=== PATIENT | female | born 1990 | race Caucasian/White ===

== ENCOUNTER 2018-06-27 20:58 | Inpatient (IN) | payer BC ==
[2018-06-27] MEDS ORDERED: Famotidine TAB* 20 MG PO PRN (22:40)
--- NOTE | 2018-06-27 22:56 | HP ---
General Information - General Information Maternal Age: 27 Grav: 1 Para: 0 SAB: 0 IEA: 0 Estimated Due Date: 07/04/18 Determined By: LMP Maternal Blood Type and Rh: A Positive - Results this Serology/RPR Result: Non-Reactive Rubella Result: Immune HBsAg Result: Negative HIV Result: Negative GBS Culture Result: Negative Past Medical History Delivery History: See Records Delivery History Comment: No previous pregnancies Pertinent Past Medical History: See Records Past Medical History Comment: Depression/anxiety migraine Pertinent Past Surgical History: None Pertinent Family History: Non-Contributory Family History Comment: HTN Diabetes [place] Moline's dz - Antepartal Records Antepartal Records: Reviewed, Complicated by: - polyhydramnios Review of Systems Constitutional: Uncomfortable CV Complaint: No Respiratory: Shortness of Breath: No Gastrointestinal: No Nausea/Vomiting, Diarrhea Genitourinary: Leaking Fluid, No Dysuria, No Bleeding Musculoskeletal: Contractions - Mild cramps Neurological: No Headache, No Visual Changes Movement: Normal Exam Allergies/Adverse Reactions: Allergies shellfish derived Allergy (Severe, Verified 06/27/18 21:12) Anaphylatic Shock cefaclor [From Ceclor] Allergy (Intermediate, Verified 06/27/18 21:12) Hives Iodine and Iodide Containing Produc Allergy (Intermediate, Verified 06/27/18 21: 12) Anaphylatic Shock BP 130/86 T 98.8 HR 93 O2 98 - Measurements Height: 5 ft 7 in Weight: 209 lb Weight in lbs: [phone] Body Mass Index (BMI): 32.7 Pre- Weight: 145 lb Weight Gained This : 64 lbs and 0 ozs - Exam Breast: Breast Exam Deferred CVA: No CVA Tenderness Extremities: No Edema Heart: Normal Rhythm/Heart Sounds HEENT: No Significant Findings Lungs: Clear Bilaterally Rectal: Rectal Exam Deferred Reflexes: DTR 2+, - - no clonus - Abdominal Exam Abdomen Exam: Non-Tender - Ultrasound/Biophysical Profile Ultrasound Status: Not Done Targeted Exam Findings Estimated Weight: 8.5-9lb Membrane Status: SROM Amniotic Fluid Evaluation: Gross Rupture Bleeding/Discharge: None - Vaginal exam deferred at this time due to membrane rupture. EFM Findings - External Monitor Findings Baseline Heart Rate: 150 External Monitor Findings: Accelerations Present, No Pattern of Variable or Late Decelerations, Variability Moderate Contractions: Irregular, Mild, < 45 Seconds Contraction Frequency: Cramping Assessment/Plan - Assessment 27 yo with IUP @ 39+0 weeks gestation, complicated by polyhydramnios, with spontaneous rupture of membranes. No evidence metabolic acidemia. - Plan Plan: Admit - Anticipate Vaginal Delivery Plan Comment: Admit to L&D. Discussed option of therapeutic rest but patient prefers to avoid medication at this time. Encouraged rest/sleep and awaiting labor. Aware that recommendation will be to augment labor if not starting before approx 12 hours post rupture; PARQ discussion pitocin for this. Desires labor epidural when uncomfortable. Anticipate SVB - Date/Time of Admission Date of Admission: 06/27/18 Time of Admission: 21:43
[2018-06-28] MEDS ORDERED: Promethazine INJ(RESTRICTED)* 25 MG/ML 1 ML VIAL IV PRN (04:35)
[2018-06-28] MEDS ORDERED: Nalbuphine* 10 MG/ML 1 ML VIAL IV PRN ×2 (04:35→22:38)
[2018-06-28 04:45] LABS: ABS Basophils 0.1 10^3/ul (0-0.2); ABS Eosinophils 0.1 10^3/ul (0-0.6); ABS Lymphocytes 2.4 10^3/ul (1.0-4.8); ABS Monocytes 1.4 10^3/ul (0-0.8); ABS Neutrophils 7.7 10^3/ul (1.5-7.7); ABS Nucleated RBC 0 10^3/ul; Eosinophil % 0.8 % (0-6); Hematocrit 36 % (35-47); Hemoglobin 12.2 g/dl (12.0-16.0); Lymphocyte % 20.7 % (25-47); Mean Corpuscular HGB Conc 34 g/dl (31-36); Mean Corpuscular Hemoglobin 30 pg (27-31); Mean Corpuscular Volume 90 fL (80-97); Mean Platelet Volume 10.9 um3 (7.4-10.4); Nucleated Red Blood Cells % 0.1; Platelet Count 144 10^3/ul (150-450); Red Blood Count 4.01 10^6/ul (4.00-5.40); Red Cell Distribution Width 13 % (10.5-15); White Blood Count 11.6 10^3/ul (3.5-10.8)
--- NOTE | 2018-06-28 04:46 | PN ---
Progress Note - Progress Note Date of Service: 06/28/18 Note: S: Patient more uncomfortable, wants to discuss pain medicine and have VE. O: VSS, afebrile VE 1-2cm/100/-1 FHT 125, cat 1 UCs Q 2-4 min A: Early labor No evidence metabolic acidemia P: PARQ discussion nubain/phenergan and patient accepts. Plan to try to sleep and consider epidural as desired
[2018-06-28] MEDS ORDERED: OBEPIDURAL* 250 ML EPIDURAL ONE (09:59)
[2018-06-28] MEDS ORDERED: Sodium Citrate/Citric Acid* 15 ML UDC PO PRN (10:57)
[2018-06-28] MEDS ORDERED: EPHEDrine (Pressors)* 50 MG/ML VIAL IV PUSH PRN ×2 (10:57)
[2018-06-28] MEDS ORDERED: Famotidine TAB* 20 MG PO PRN (10:57)
[2018-06-28] MEDS ORDERED: Phenylephrine IV* 40 MCG/ML 10 ML SYRINGE IV PUSH PRN ×2 (10:57)
[2018-06-28] MEDS ORDERED: Oxytocin in LR* 20 UNITS/1,000 ML BAG IVPB SCH ×3 (11:00→22:00)
[2018-06-28] MEDS ORDERED: Clindamycin 900 MG IVPREMIX(* 900 MG/50 ML SDV IV ONE (21:00)
[2018-06-28] MEDS ORDERED: Gentamicin ADULT (*) 120 MG in NS 0.9% 100 ML* 100 ML IVPB ONE (21:00)
[2018-06-28] MEDS ORDERED: Dibucaine 1% 28.35 GM TUBE PR PRN (21:10)
[2018-06-28] MEDS ORDERED: Acetaminophen TAB* 325 MG PO PRN (21:10)
[2018-06-28] MEDS ORDERED: Witch Hazel PAD* JAR TOPICAL PRN (21:10)
[2018-06-28] MEDS ORDERED: oxyCODONE/Acetamin 5/325 MG* TAB PO PRN ×2 (21:10)
[2018-06-28] MEDS ORDERED: Glycerin ADULT SUPP PR PRN (21:10)
[2018-06-28] MEDS ORDERED: Ibuprofen TAB* 600 MG PO PRN (21:10)
[2018-06-28] MEDS ORDERED: Lidocaine 2% PF* 10 ML AMP ONE (21:16)
[2018-06-28] MEDS ORDERED: Midazolam* 1 MG/ML 2 ML VIAL (2 MG) ONE (21:44)
[2018-06-28] MEDS ORDERED: fentaNYL* 50 MCG/ML 2 ML VIAL (100 MCG VIAL) ONE (22:15)
[2018-06-28] MEDS ORDERED: Ketorolac INJ* 30 MG/ML 1 ML VIAL ONE (22:16)
[2018-06-28] MEDS ORDERED: Morphine PF AMP (0.5MG/ML)* 5 MG/10 ML AMP ONE ×2 (22:34→22:35)
[2018-06-28] MEDS ORDERED: Ondansetron INJ* 2 MG/ML VIAL IV PRN ×2 (22:37→22:38)
[2018-06-28] MEDS ORDERED: HYDROmorphone INJ1* 1 MG/ML SYRINGE IV PRN (22:37)
[2018-06-28] MEDS ORDERED: Naloxone* 0.4 MG/ML 1 ML VIAL IV PRN ×2 (22:37→22:38)
[2018-06-28] MEDS ORDERED: fentaNYL* 50 MCG/ML 2 ML VIAL (100 MCG VIAL) IV PRN (22:37)
[2018-06-28] MEDS ORDERED: DiMENhydriNATE IV* 50 MG/ML VIAL IV PUSH PRN (22:38)
[2018-06-28] MEDS ORDERED: Scopolamine 1.5 mg* PATCH TRANSDERM PRN (22:38)
[2018-06-28] MEDS ORDERED: diPHENhydraMINE IV* 50 MG/ML 1 ml VIAL (BENADRYL) IV PRN (22:38)
[2018-06-28] MEDS: HYDROmorphone INJ* 0.5 MG/0.5 ML SYRINGE ONE ×3 (23:20→23:34)
[2018-06-29] MEDS: Ketorolac INJ* 30 MG/ML 1 ML VIAL IV PRN ×4 (04:17→22:04)
[2018-06-29 06:17] LABS: ABS Basophils 0.1 10^3/ul (0-0.2); ABS Eosinophils 0.1 10^3/ul (0-0.6); ABS Lymphocytes 1.7 10^3/ul (1.0-4.8); ABS Monocytes 1.5 10^3/ul (0-0.8); ABS Neutrophils 8.6 10^3/ul (1.5-7.7); ABS Nucleated RBC 0 10^3/ul; Eosinophil % 0.5 % (0-6); Hematocrit 32 % (35-47); Hemoglobin 11.1 g/dl (12.0-16.0); Lymphocyte % 14.1 % (25-47); Mean Corpuscular HGB Conc 35 g/dl (31-36); Mean Corpuscular Hemoglobin 31 pg (27-31); Mean Corpuscular Volume 90 fL (80-97); Mean Platelet Volume 10.8 um3 (7.4-10.4); Nucleated Red Blood Cells % 0.1; Platelet Count 124 10^3/ul (150-450); Red Blood Count 3.57 10^6/ul (4.00-5.40); Red Cell Distribution Width 13 % (10.5-15); White Blood Count 11.9 10^3/ul (3.5-10.8)
[2018-06-29] MEDS ORDERED: Ferrous Gluconate TAB* 324 MG TAB PO SCH (09:00)
[2018-06-29] MEDS: Simethicone TAB* 80 MG TAB.CHEW PO SCH ×4 (10:00→22:07)
[2018-06-29] MEDS: Docusate CAP* 100 MG PO SCH ×3 (10:00→22:07)
--- NOTE | 2018-06-29 10:27 | OP ---
DATE OF OPERATION: 06/28/18 - ROOM #104 DATE OF : [birth year]. SURGEON: Dr. Arabella Richards. WIND INSTRUMENT REPAIRER: Mary Amezquita MD. SECOND WIND INSTRUMENT REPAIRER: Jennie Stevens CNM. ANESTHESIOLOGIST: Dr. Prado. ANESTHESIA: Epidural. PRE-OP DIAGNOSIS: Intrauterine 39 and 1/7th weeks, polyhydramnios large for gestational age, arrest disorder, arrest of dilation. POST-OP DIAGNOSIS: Intrauterine 39 and 1/7th weeks, polyhydramnios large for gestational age, arrest disorder, arrest of dilation, delivered. OPERATIVE PROCEDURE: Primary low transverse section. FINDINGS: Revealed a vertex left occiput transverse male with Apgars 9 at 1 minute and 9 at 5 minutes, nuchal cord x1, no meconium, weight 9 pounds 15 ounces. Placenta manually extracted, 3-vessel cord intact. Uterine cavity without evidence of retained membranes or placental tissue. Normally palpated ovaries and tubes bilaterally. ESTIMATED BLOOD LOSS: 600 cc. URINE OUTPUT: 400 cc of clear yellow urine. FLUIDS: 1600 cc of crystalloid. COMPLICATIONS: None apparent. DISPOSITION: Stable to recovery room. DESCRIPTION OF PROCEDURE: The patient was placed in dorsal lithotomy position. The abdomen was prepped and draped in a sterile standard fashion. Anesthesia was tested to appropriate level. The patient was identified for correct procedure, position and patient. An incision was made 2 fingerbreadths above the pubic symphysis. This was carried down through the fascia. The fascia was scored in the midline and extended laterally and superiorly using Tejada scissors. Fascia was sharply from the rectus muscle both superiorly and inferiorly. The peritoneum was then entered bluntly. The bladder blade was inserted and bladder flap was created with sharp and blunt dissection and the Allis was used to tent up on the lower uterine segment. An incision was made with a scalpel, extended laterally and superiorly using bandage scissors. The infant was found to be nonengaged within the pelvis, head presentation of the left occiput transverse. Vacuum was placed x2 with final delivery of the head, anterior and posterior shoulder delivered. The cord was allowed to pulse for 60 seconds and then clamped and cut and the was handed off to the executive marketing assistant. Appropriate cord blood was obtained. Placenta was then manually extracted and noted to be 3-vessel cord and intact. Uterus was left in place and the uterine cavity was explored and noted to free of any membranes or placental tissues. The uterine incision itself was reapproximated in 2 layers, first layer running locked 0 Vicryl and the second layer running imbricated 0 Vicryl. The hysterotomy site was noted to be hemostatic at that point. Tubes and ovaries were palpated and noted to be palpate normally, but could not be visualized. Once the hemostasis was confirmed at the hysterotomy site, the peritoneum was clamped with Magalis. The peritoneum was reapproximated using 3-0 Vicryl in a running fashion. The subfascial area was visualized, hemostasis assured with Bovie coagulation. The fascia itself was reapproximated using 0 Vicryl x2 in a running fashion. Subcu lavage was performed and the subcu was noted to be hemostatic with Bovie coagulation. The Camper's fascia was noted to have more than a 2 cm depth, so the Camper's fascia was reapproximated using 3-0 Vicryl in an interrupted fashion. The skin was then reapproximated with 4-0 Monocryl in a subcuticular fashion, Mastisol and Steris were applied. All sponge, needle, instrument, and blade counts were correct throughout the case. The patient tolerated the procedure well and went to recovery room in a stable condition. [id number]/[facility] #: [id number] CHIDI
[2018-06-29] MEDS: oxyCODONE/Acetamin 5/325 MG* TAB PO PRN ×3 (12:47→20:40)
[2018-06-29] MEDS ORDERED: oxyCODONE/Acetamin 5/325 MG* TAB PO PRN (14:40)
[2018-06-30] MEDS ORDERED: Ammonia Inhalant* 1 EA AMP ONE (02:50)
[2018-06-30] MEDS: oxyCODONE/Acetamin 5/325 MG* TAB PO PRN ×3 (04:19→21:04)
[2018-06-30] MEDS: Ibuprofen TAB* 600 MG PO PRN ×4 (04:20→23:05)
[2018-06-30] MEDS: OBEPIDURAL* 250 ML EPIDURAL SCH ×2 (09:25→09:27)
[2018-06-30] MEDS: Simethicone TAB* 80 MG TAB.CHEW PO SCH ×4 (09:37→21:07)
[2018-06-30] MEDS: Docusate CAP* 100 MG PO SCH ×3 (09:37→21:07)
[2018-07-01] MEDS: oxyCODONE/Acetamin 5/325 MG* TAB PO PRN ×3 (01:11→09:28)
[2018-07-01] MEDS: Ibuprofen TAB* 600 MG PO PRN (05:30)
[2018-07-01 08:15] VITALS: BP 104/60
[2018-07-01] MEDS: Docusate CAP* 100 MG PO SCH (09:27)
[2018-07-01] MEDS: Simethicone TAB* 80 MG TAB.CHEW PO SCH (09:28)
[2018-07-01] MEDS ORDERED: Hydrocortisone 1% CREAM* 1.5 GM PAK TOPICAL SCH (11:00)
[2018-07-01] MEDS ORDERED: Scopolamine PATCH Remove* 1 NOTE MISC PATCH OFF PRN (22:40)
== END 2018-07-01 12:39 | disposition home or self-care (01) | DRG 540 ==
LOC: MCHOBOUT 20:58 → MCHOB 21:43
PROVIDERS: ADMIT Midwife; ATTEND Obstetrics & Gynecology
PROC: 10D00Z1 Extraction of Products of Conception, Low, Open Approach (ICD-10-PCS; principal; 2018-06-28 21:27)
DX: O62.0 Primary inadequate contractions (principal); O40.3XX0 Polyhydramnios, third trimester, not applicable or unspecified; O99.344 Other mental disorders complicating childbirth; F41.8 Other specified anxiety disorders; O69.81X0 Labor and delivery complicated by cord around neck, without compression, not applicable or unspecified; Z3A.39 39 weeks gestation of pregnancy; Z37.0 Single live birth
CPT/HCPCS: 36415; 85025; 86850; 86900; 86901; A9270-GY; J1170; J1580; J1885; J2001; J2250; J2300; J2550; J3010

== ENCOUNTER 2019-05-07 20:48 | Emergency (ER) | payer BC ==
[2019-05-07 21:08] VITALS: BP 125/85
--- NOTE | 2019-05-07 21:40 | UC ---
Abdominal Pain Female HPI - HPI Summary HPI Summary: ONSET THIS AFTERNOON OF DULL PAIN IN THE BACK WHICH IS NOW ACROSS HER WHOLE ABDOMEN. SHE HAS HAD WORSENING NAUSEA BUT NO VOMITING. NO CHANGE IN BOWEL HABITS. NO URINARY SYMPTOMS. NO FEVER. NO MENSES IN ABOUT 19 MONTHS DUE TO AND BREAST-FEEDING. - History of Current Complaint Chief Complaint: UCAbdominalPain Stated Complaint: ABD PAIN Time Seen by Provider: 05/07/19 20:56 Hx Obtained From: Patient Onset/Duration: Gradual Onset, Lasting Hours, Still Present Timing: Constant Severity Initially: Moderate Severity Currently: Moderate Pain Intensity: 7 Pain Scale Used: 0-10 Numeric Location: Diffuse Radiates: Yes Radiates to: Back Character: Sharp Aggravating Factor(s): Movement Alleviating Factor(s): Nothing Associated Signs and Symptoms: Positive: Back Pain, Nausea. Negative: Diaphoresis, Fever, Constipation, Blood in Stool, Urinary Symptoms, Decreased Appetite, Vomiting, Diarrhea Allergies/Adverse Reactions: Allergies Allergy/AdvReac Type Severity Reaction Status Date / Time shellfish derived Allergy Severe Anaphylatic Verified 05/07/19 21:08 Shock cefaclor [From Ceclor] Allergy Intermediate Hives Verified 05/07/19 21:08 Iodine and Iodide Containing Allergy Intermediate Anaphylatic Verified 05/07/19 21:08 Produc Shock Home Medications: Home Medications Ibuprofen TAB* [Motrin TAB* 600 MG] 200 mg PO Q6H PRN 05/07/19 [History Confirmed 05/07/19] Loratadine [Claritin 10 MG CAP] 10 mg PO DAILY 05/07/19 [History Confirmed 05/07] PMH/Surg Hx/FS Hx/Imm Hx Previously Healthy: Yes - Surgical History Surgical History: Yes Surgery Procedure, Year, and Place: c-sec x1 - Family History Known Family History: Positive: Non-Contributory - Social History Alcohol Use: None Alcohol Amount: pre = 1 to 2/ week Substance Use Type: None Smoking Status (MU): Former Smoker Type: Cigarettes Length of Time of Smoking/Using Tobacco: 3yrs Have You Smoked in the Last Year: No Review of Systems All Other Systems Reviewed And Are Negative: Yes Constitutional: Positive: Negative Respiratory: Positive: Negative Cardiovascular: Positive: Negative Gastrointestinal: Positive: Abdominal Pain, Nausea Genitourinary: Positive: Negative Physical Exam Triage Information Reviewed: Yes Appearance: Well-Nourished, Pain Distress - MODERATE Vital Signs: Initial Vital Signs Temp 98.0 F 05/07/19 21:02 Pulse 86 05/07/19 21:02 Resp 16 05/07/19 21:02 BP 125/85 05/07/19 21:02 Pulse Ox 99 05/07/19 21:02 Laboratory Tests 05/07/19 05/07/19 21:15 21:22 POC Urine Color Yellow POC Urine Clarity Clear POC Urine pH 7.5 POC Ur Specif Bono 1.015 POC Urine Protein Negative POC Ur Glucose (UA) Negative POC Urine Ketones Negative POC Urine Blood Negative POC Urine Nitrite Negative POC Urine Bilirubin Negative POC Urine Urobilinogen 0.2 POC U Leukocyte Esteras Negative POC Ur Test Negative Vital Signs Reviewed: Yes Eyes: Positive: Conjunctiva Clear ENT: Positive: Hearing grossly normal Neck: Positive: Supple Respiratory: Positive: No respiratory distress, No accessory muscle use Cardiovascular: Positive: Pulses Normal Abdomen Description: Positive: Soft, Other: - EXQUISITELY TTP RLQ. PAIN WITH LIGHT PERCUSSION TO THE AREA. POS PSOAS AND OBTURATOR SIGNS. Negative: CVA Tenderness (R), CVA Tenderness (L), Distended, Guarding Bowel Sounds: Positive: Present Musculoskeletal: Positive: No Edema Neurological: Positive: Alert Psychological: Positive: Age Appropriate Behavior Skin: Negative: Rashes Abd Pain Female Course/Dx - Course Course Of Treatment: CONCERN FOR ACUTE APPENDICITIS. TO [facility] BY PRIVATE CAR. PT OFFERED TRANSPORT TO THE ER BY AMBULANCE BUT DECLINES. ADVISED THAT BY NOT TRAVELING IN A MONITORED SETTING SHE COULD BE RISKING WORSENING OF HER CONDITION THAT COULD POSE A THREAT TO HER LIFE, HEALTH AND MEDICAL SAFETY. SHE VERBALIZES UNDERSTANDING AND CONTINUES TO DECLINE AMBULANCE TRANSFER. - Differential Dx/Diagnosis Provider Diagnosis: RLQ abdominal pain Discharge - Sign-Out/Discharge Documenting (check all that apply): Patient Departure All imaging exams completed and their final reports reviewed: No Studies - Discharge Plan Condition: Stable Disposition: TRANS HIGHER LVL OF CARE FAC Patient Education Materials: Abdominal Pain (ED) Referrals: Saud Polanco MD [Primary Care Provider] - If Needed Additional Instructions: I AM CONCERNED ABOUT ACUTE APPENDICITIS. DO NOT EAT OR DRINK ANYTHING UNTIL SEEN IN THE ER. GO DIRECTLY TO THE [facility] ER FROM HERE FOR FURTHER EVALUATION. YOU HAVE DECLINED TRANSFER TO THE ER BY AMBULANCE. BE ADVISED THAT BY NOT TRAVELING IN A MONITORED SETTING YOU COULD BE RISKING WORSENING OF YOUR CONDITION THAT COULD POSE A THREAT TO YOUR LIFE, HEALTH AND MEDICAL SAFETY. - Billing Disposition and Condition Condition: STABLE Disposition: Trans Higher Lvl of Care Fac
== END 2019-05-07 21:35 | disposition short-term general hospital (02) ==
LOC: UCEAST 20:48
DX: R10.31 Right lower quadrant pain (principal); Z87.891 Personal history of nicotine dependence
CPT/HCPCS: 81003; 84702; 99212; G0463

== ENCOUNTER 2019-05-07 21:58 | Emergency (ER) | payer BC ==
[2019-05-07 22:57] LABS: ABS Basophils 0.1 10^3/ul (0-0.2); ABS Eosinophils 0.1 10^3/ul (0-0.6); ABS Lymphocytes 1.9 10^3/ul (1.0-4.8); ABS Monocytes 1.2 10^3/ul (0-0.8); ABS Neutrophils 9.1 10^3/ul (1.5-7.7); Eosinophil % 0.8 %; Hematocrit 45 % (35-47); Hemoglobin 15.3 g/dL (12.0-16.0); Lymphocyte % 15.5 %; Mean Corpuscular HGB Conc 34 g/dL (31-36); Mean Corpuscular Hemoglobin 31 pg (27-31); Mean Corpuscular Volume 91 fL (80-97); Mean Platelet Volume 9.2 fL (7.4-10.4); Platelet Count 220 10^3/uL (150-450); Red Cell Distribution Width 13 % (10-15); White Blood Count 12.4 10^3/uL (3.5-10.8)
[2019-05-07 23:14] LABS: ALT 10 U/L (7-52); AST 16 U/L (13-39); Albumin 4.7 g/dL (3.2-5.2); Albumin/Globulin Ratio 1.5 (1-3); Alkaline Phosphatase 109 U/L (34-104); Anion Gap 7 mmol/L (2-11); BUN/Creatinine Ratio 21.5 (8-20); Blood Urea Nitrogen 17 mg/dL (6-24); C Reactive Protein 4.29 mg/L (<8.01); CO2 Carbon Dioxide 27 mmol/L (22-32); Calcium 9.7 mg/dL (8.6-10.3); Chloride 105 mmol/L (101-111); EGFR African American 104.9 (>60); EGFR Non-African American 86.7 (>60); Globulin 3.1 g/dL (2-4); Glucose 110 mg/dL (70-100); Potassium 3.6 mmol/L (3.5-5.0); Sodium 139 mmol/L (135-145); Total Protein 7.8 g/dL (6.4-8.9)
[2019-05-07 23:20] LABS: HCG Pregnancy < 0.60 mIU/mL
[2019-05-08 00:18] VITALS: BP 150/93
[2019-05-08] MEDS ORDERED: Bupivacaine 0.25% SDV PF* 10 ML VIAL INJ ONE (12:20)
[2019-05-08] MEDS ORDERED: Midazolam* 1 MG/ML 5 ML VIAL (5 MG) ONE (12:54)
[2019-05-08] MEDS ORDERED: fentaNYL* 50 MCG/ML 2 ML VIAL (100 MCG VIAL) ONE ×2 (12:54→14:58)
[2019-05-08] MEDS ORDERED: Ketorolac INJ* 30 MG/ML 1 ML VIAL ONE (12:56)
[2019-05-08] MEDS ORDERED: Lidocaine 2% PF * 5 ML VIAL ONE (12:56)
[2019-05-08] MEDS ORDERED: Dexamethasone IV* 4 MG/ML 1 ML (4 MG) ONE (12:56)
[2019-05-08] MEDS ORDERED: Propofol* 10 MG/ML 20 ML BTL ONE ×2 (12:56→14:38)
[2019-05-08] MEDS ORDERED: Ondansetron INJ* 2 MG/ML VIAL ONE (12:56)
[2019-05-08] MEDS ORDERED: Succinylcholine* 20 MG/ML 10 ML VIAL ONE (12:56)
[2019-05-08] MEDS ORDERED: DiMENhydriNATE IV* 50 MG/ML VIAL ONE (12:56)
[2019-05-08] MEDS ORDERED: Rocuronium* 10 MG/ML VIAL ONE (12:58)
[2019-05-08] MEDS ORDERED: Acetaminophen IV 1GM/100ML * 100 ML ONE (14:24)
[2019-05-08] MEDS ORDERED: Midazolam* 1 MG/ML 2 ML VIAL (2 MG) ONE (14:58)
[2019-05-08] MEDS ORDERED: oxyCODONE TAB* 5 MG TAB ONE ×2 (15:23→15:52)
== END 2019-05-08 01:27 | disposition home or self-care (01) ==
LOC: ED 21:58
DX: Z53.21 Procedure and treatment not carried out due to patient leaving prior to being seen by health care provider (principal)
CPT/HCPCS: 36415; 76705; 80053; 83605; 83690; 84702; 85025; 86140; 99282; A9270-GY; J0330; J1100; J1240; J1885; J2250; J2405; J2704; J3010; J3490

== ENCOUNTER 2019-05-08 08:33 | Day surgery (SDC) | payer BC ==
[2019-05-08] MEDS ORDERED: Ondansetron INJ* 2 MG/ML VIAL IV ONE (09:52)
[2019-05-08] MEDS ORDERED: Morphine 4 MG/ML VIAL (1 ml) 4 MG/ML VIAL IV ONE (09:52)
[2019-05-08] MEDS ORDERED: NS 0.9% 1000 ML** 1,000 ML IV ONE (09:57)
[2019-05-08 10:09] LABS: ABS Basophils 0.1 10^3/ul (0-0.2); ABS Eosinophils 0.1 10^3/ul (0-0.6); ABS Lymphocytes 1.6 10^3/ul (1.0-4.8); ABS Monocytes 0.9 10^3/ul (0-0.8); ABS Neutrophils 6.1 10^3/ul (1.5-7.7); Eosinophil % 0.7 %; Hematocrit 41 % (35-47); Hemoglobin 14.3 g/dL (12.0-16.0); Lymphocyte % 18.9 %; Mean Corpuscular HGB Conc 35 g/dL (31-36); Mean Corpuscular Hemoglobin 32 pg (27-31); Mean Corpuscular Volume 91 fL (80-97); Mean Platelet Volume 9.3 fL (7.4-10.4); Platelet Count 189 10^3/uL (150-450); Red Blood Count 4.54 10^6 /uL (3.70-4.87); Red Cell Distribution Width 13 % (10-15); White Blood Count 8.7 10^3/uL (3.5-10.8)
[2019-05-08 10:22] LABS: ALT 9 U/L (7-52); AST 13 U/L (13-39); Albumin 4.3 g/dL (3.2-5.2); Albumin/Globulin Ratio 1.4 (1-3); Alkaline Phosphatase 102 U/L (34-104); Anion Gap 5 mmol/L (2-11); BUN/Creatinine Ratio 20.3 (8-20); Blood Urea Nitrogen 14 mg/dL (6-24); CO2 Carbon Dioxide 29 mmol/L (22-32); Calcium 9.5 mg/dL (8.6-10.3); Chloride 106 mmol/L (101-111); EGFR African American 122.6 (>60); EGFR Non-African American 101.3 (>60); Glucose 99 mg/dL (70-100); Potassium 3.9 mmol/L (3.5-5.0); Sodium 140 mmol/L (135-145); Total Protein 7.3 g/dL (6.4-8.9)
--- NOTE | 2019-05-08 11:24 | ED ---
Abdominal Pain/Female - HPI Summary HPI Summary: Pt. is a 28 y.o female who presents to the ER for lower abdominal pain since yesterday. Pt. states she went to [facility] and then referred to ER yesterday. Pt. had labs and u/s of appendix in the waiting room but states she had to leave to breast feed. Denies past medical hx. Pain notes pain is primarily to RLQ but radiates to back. Associated sxs of decreased appetite and nausea. Sxs are moderate in severity. Movement makes sxs worse. Nothing makes - History of Current Complaint Chief Complaint: EDAbdPain Stated Complaint: ABD PAIN PER PT Time Seen by Provider: 05/08/19 09:39 Hx Obtained From: Patient Pain Intensity: 7 Allergies/Adverse Reactions: Allergies Allergy/AdvReac Type Severity Reaction Status Date / Time shellfish derived Allergy Severe Anaphylatic Verified 05/08/19 08:42 Shock cefaclor [From Ceclor] Allergy Intermediate Hives Verified 05/08/19 08:42 Iodine and Iodide Containing Allergy Intermediate Anaphylatic Verified 05/08/19 08:42 Produc Shock PMH/Surg Hx/FS Hx/Imm Hx Previously Healthy: Yes Psychiatric History: Reports: Hx Anxiety, Hx Depression - Surgical History Surgery Procedure, Year, and Place: c-sec x1 Infectious Disease History: No Infectious Disease History: Denies: Traveled Outside the [place] in Last 30 Days - Family History Known Family History: Positive: Non-Contributory - Social History Occupation: Unemployed Lives: With Family Alcohol Use: Occasionally Alcohol Amount: pre = 1 to 2/ week Substance Use Type: Reports: None Smoking Status (MU): Former Smoker Type: Cigarettes Length of Time of Smoking/Using Tobacco: 3yrs Have You Smoked in the Last Year: No Review of Systems Constitutional: Negative Negative: Fever, Chills ENT: Negative Cardiovascular: Negative Respiratory: Negative Positive: Abdominal Pain, Nausea. Negative: Vomiting, Diarrhea Genitourinary: Negative All Other Systems Reviewed And Are Negative: Yes Physical Exam Triage Information Reviewed: Yes Vital Signs On Initial Exam: Initial Vitals Temp Pulse Resp BP Pulse Ox 97.7 F 82 16 108/73 99 05/08/19 08:39 05/08/19 08:39 05/08/19 08:39 05/08/19 08:39 05/08/19 08:39 Vital Signs Reviewed: Yes Appearance: Positive: Well-Appearing - Pt. lying in bed, appears uncomfortable but nontoxic. Mother present. Skin: Positive: Warm, Dry Head/Face: Positive: Normal Head/Face Inspection Eyes: Positive: Normal, EOMI, MELI Neck: Positive: Supple Respiratory/Lung Sounds: Positive: Clear to Auscultation, Breath Sounds Present Cardiovascular: Positive: Normal, RRR Abdomen Description: Positive: Other: - Abd. is soft with significant pain to RLQ and lower abd. with guarding. No CVA Tenderness. Musculoskeletal: Positive: Normal, Strength/ROM Intact Neurological: Positive: Normal, CN Intact II-III Psychiatric: Positive: Affect/Mood Appropriate Diagnostics - Vital Signs Vital Signs Temp Pulse Resp BP Pulse Ox 05/08/19 11:01 84 97 05/08/19 10:19 81 115/77 98 05/08/19 10:10 16 05/08/19 10:01 79 98 05/08/19 09:50 77 106/71 99 05/08/19 09:20 82 99/71 98 05/08/19 09:01 88 98 05/08/19 08:50 81 118/80 98 05/08/19 08:49 86 98 05/08/19 08:39 97.7 F 82 16 108/73 99 - Laboratory Lab Results: Lab Results 05/08/19 05/08/19 Range/Units 09:57 09:57 WBC 8.7 (3.5-10.8) 10^3/uL RBC 4.54 (3.70-4.87) 10^6 /uL Hgb 14.3 (12.0-16.0) g/dL Hct 41 (35-47) % MCV 91 (80-97) fL MCH 32 H (27-31) pg MCHC 35 (31-36) g/dL RDW 13 (10-15) % Plt Count 189 (150-450) 10^3/uL MPV 9.3 (7.4-10.4) fL Neut % (Auto) 69.9 % Lymph % (Auto) 18.9 % [place] % (Auto) 9.8 % Eos % (Auto) 0.7 % Baso % (Auto) 0.7 % Absolute Neuts (auto) 6.1 (1.5-7.7) 10^3/ul Absolute Lymphs (auto) 1.6 (1.0-4.8) 10^3/ul Absolute Monos (auto) 0.9 H (0-0.8) 10^3/ul Absolute Eos (auto) 0.1 (0-0.6) 10^3/ul Absolute Basos (auto) 0.1 (0-0.2) 10^3/ul Absolute Nucleated RBC 0.0 10^3/ul Nucleated RBC % 0.0 Sodium 140 (135-145) mmol/L Potassium 3.9 (3.5-5.0) mmol/L Chloride 106 (101-111) mmol/L Carbon Dioxide 29 (22-32) mmol/L Anion Gap 5 (2-11) mmol/L BUN 14 (6-24) mg/dL Creatinine 0.69 (0.51-0.95) mg/dL Est GFR ( Amer) 122.6 (>60) Est GFR (Non-Af Amer) 101.3 (>60) BUN/Creatinine Ratio 20.3 H (8-20) Glucose 99 (70-100) mg/dL Calcium 9.5 (8.6-10.3) mg/dL Total Bilirubin 0.70 (0.2-1.0) mg/dL AST 13 (13-39) U/L ALT 9 (7-52) U/L Alkaline Phosphatase 102 (34-104) U/L C-Reactive Protein 60.00 H (<8.01) mg/L Total Protein 7.3 (6.4-8.9) g/dL Albumin 4.3 (3.2-5.2) g/dL Globulin 3.0 (2-4) g/dL Albumin/Globulin Ratio 1.4 (1-3) Lipase 10 L (11.0-82.0) U/L Result Diagrams: 05/08/19 09:57 05/08/19 09:57 Lab Statement: Any lab studies that have been ordered have been reviewed, and results considered in the medical decision making process. Abdominal Pain Fem Course/Dx - Course Course Of Treatment: Pt. presenting with worsening RLQ pain. Afebrile with stable VS. Will obtain CT scan to evaluate for appendicitis. Labs unremarkable other than elevated CRP. CT abd.pelvis per radiology: IMPRESSION: There is dilated tubular structure in the right lower quadrant consistent with. mildly dilated appendix measuring up to 0.9 cm. Findings are suggestive of acute. appendicitis. 1125: Case discussed with Dr. Robertson who will see pt. in ED. Dr. Robertson plans to take pt. to OR. Zosyn given. - Diagnoses Differential Diagnosis: Positive: Appendicitis, Bowel Obstruction, Constipation , Ovarian Cyst, Renal Colic, Urinary Tract Infection Provider Diagnoses: Appendicitis Discharge - Sign-Out/Discharge Documenting (check all that apply): Patient Departure Patient Received Moderate/Deep Sedation with Procedure: No - Discharge Plan Condition: Stable Disposition: [facility] Referrals: Saud Polanco MD [Primary Care Provider] - - Billing Disposition and Condition Condition: STABLE Disposition: Admitted to [facility]
[2019-05-08] MEDS ORDERED: Piperacillin/Tazobac ADVAN(*) 3.375 GM in NS 0.9% 100 ML* 100 ML IVPB ONE (11:29)
[2019-05-08 12:39] LABS: HCG Pregnancy < 0.60 mIU/mL
[2019-05-08] MEDS ORDERED: Naloxone* 0.4 MG/ML 1 ML VIAL IV PRN (14:53)
[2019-05-08] MEDS ORDERED: Midazolam* 1 MG/ML 2 ML VIAL (2 MG) IV SLOW PU ONE (14:56)
[2019-05-08] MEDS: fentaNYL* 50 MCG/ML 2 ML VIAL (100 MCG VIAL) IV PRN ×3 (15:02→15:18)
[2019-05-08] MEDS: oxyCODONE TAB* 5 MG TAB PO PRN ×2 (15:27→15:54)
[2019-05-08 15:55] VITALS: BP 96/55
--- NOTE | 2019-05-08 19:38 | OP ---
DATE OF OPERATION: 05/08/19 - [facility] DATE OF : [birth year] SERVICE: General Surgery. SURGEON: Liz Robertson MD. FILTER CLOTH MAKER: None. ANESTHESIOLOGIST: Dr. Maritza Owens. ANESTHESIA: General endotracheal anesthesia. PRE-OP DIAGNOSIS: Acute appendicitis. POST-OP DIAGNOSIS: Acute appendicitis. OPERATIVE PROCEDURE: Laparoscopic appendectomy. ESTIMATED BLOOD LOSS: Minimal, less than 10 cc. SPECIMEN: Appendix. FINDINGS: Enlarged, dilated, nonperforated appendix. INDICATIONS FOR SURGERY: Ms. Verduzco is a very pleasant 28-year-old female, who presented to the emergency room with 1 day of right lower quadrant abdominal pain. She was found on CT scan to have findings consistent with acute appendicitis; therefore, she gave informed consent for a laparoscopic appendectomy. She understood the risks, benefits, and alternatives of the procedure and she wished to proceed. DESCRIPTION OF PROCEDURE: The patient was brought back to the operating room and placed on the operating table in the supine position. Sequential compression devices were placed on her bilateral lower extremities for DVT prophylaxis. Antibiotics with Zosyn had been administered prior to coming to the operating room. General endotracheal anesthesia was induced and the patient 's abdomen was prepped and draped in normal sterile fashion. Prior to beginning the procedure, a time-out was performed verifying the patient's name, MR number , and the procedure to be performed. Marcaine 0.25% was used to infiltrate the infraumbilical fold. Then, an incision was made through the subcutaneous tissue at the infraumbilical fold and then 2 S retractors were used to retract the soft tissue laterally. The abdominal wall was lifted between 2 Rosas clamps and sharply divided and the abdomen was entered under direct visualization using the open Afia technique. A 0 Vicryl suture was used to secure this defect in a [id number] fashion for later closure. Next, insufflation was obtained to 15mmHg and a Afia trocar was placed in this incision. Upon inspection of the abdominal cavity with a laparoscope, there was no apparent injury that had been made. Next, under direct visualization, the remaining 2 trocars were placed, 1 in the left lower quadrant and 1 in the lower midline well up the pubis and above the bladder. These incisions were made after infiltrating with 0.25% Marcaine. Next, the appendix was visualized in the right lower quadrant. It was noted to be somewhat dilated and hyperemic , but it was nonperforated. There was a small amount of turbid fluid in the pelvis above the uterus and also in the right lower quadrant. The meso- appendix was divided using the LigaSure and then the base of the appendix was divided using a 60-mm kyle Endo SMILEY stapler. The appendix was placed into the Endo Catch bag and removed from the abdomen as a specimen. Next, inspection of the staple line showed that it was mostly hemostatic. There was a small amount bit of bleeding near the mesoappendix and this was clipped. Next, the abdomen was inspected and a few loose omar were suctioned and an examination again of the staple line showed that it was hemostatic; therefore, the site where the Afia trocar had had a 0 Vicryl suture placed was closed under direct visualization after removing the trocar and there was nothing that was caught during this closure. The remaining two trocars were removed under direct visualization and desufflation was obtained. The skin incisions were closed using interrupted 4-0 Monocryl sutures. Sterile dressing was then placed. The patient's anesthesia was reversed and she was taken to the PACU in stable condition. At the end of the case, all counts were correct and I was present during the entirety of the case. [id number]/[facility] #: [id number] CHIDI
--- NOTE | 2019-05-10 03:34 | CONS ---
CONSULTATION REPORT: DATE OF CONSULT: 05/08/19 [facility] SERVICE: General Surgery. ATTENDING SURGEON: Dr. Liz Robertson. REASON FOR CONSULT: Acute appendicitis. HISTORY OF PRESENT ILLNESS: Ms. Verduzco is a very pleasant 28-year-old healthy woman who presented to the emergency room with 1 day of epigastric radiating to right lower quadrant abdominal pain. She said that her pain began yesterday suddenly around 2 p.m. She went to the emergency, but she left prior to being fully evaluated given that she had to go home and take care of her . She presented back to the emergency room today because she had continued right lower quadrant pain that was worsening. She says currently that she still has quite a bit of pain in the right lower quadrant. She has nausea, decreased appetite, but she has not been vomiting. She has no other complaints at this time. PAST MEDICAL HISTORY: None. PAST SURGICAL HISTORY: . MEDICATIONS: 1. vitamin. 2. Claritin. ALLERGIES: SHELLFISH and IODINE. FAMILY HISTORY: No known family history. SOCIAL HISTORY: The patient is a nonsmoker, but she used to smoke in the past. REVIEW OF SYSTEMS: Negative, except for abdominal pain, nausea, and anorexia. PHYSICAL EXAM: Vital Signs: Temperature is 97.7, pulse 52, respiratory rate is 16, blood pressure is 108/73, O2 sat is 99% O2 on room air. General: She is a well-appearing young woman lying on the stretcher, somewhat anxious, but in no great distress. HEENT is normocephalic, atraumatic. Cardiovascular is regular rate and rhythm. Respiratory is clear to auscultation bilaterally. Abdomen is soft, nondistended. Tender in the right lower quadrant. Extremities : No edema. DIAGNOSTIC STUDIES/LAB DATA: White blood cell count is 8.7, hemoglobin is 14.3 , hematocrit is 41, platelets are 189. Sodium is 140, potassium is 3.9, chloride is 106, CO2 is 29, BUN is 14, creatinine is 0.69, glucose is 99. T. bili is 0.7, AST is 13, ALT is 9. C-reactive protein is 60. Imaging: CT abdomen and pelvis on 05/08/19 - reviewed. There is a dilated tubular structure in the right lower quadrant consistent with a mildly dilated appendix measuring up to 0.9 cm. Findings are suggestive of acute appendicitis. ASSESSMENT AND PLAN: Ms. Verduzco is a very pleasant 28-year-old female with a history of 1 day of right lower quadrant abdominal pain. She has no leukocytosis and no fever; however, she does have a noncontrast CT scan that is consistent with acute appendicitis given that she has a dilated tubular structure with some mild stranding around it. We discussed the potential treatment options for acute appendicitis that include operative management with a laparoscopic appendectomy versus medical management with antibiotics. She wished to undergo surgery. I explained to her that the risks include, but are not limited to bleeding, infection, injury to nearby structures such as the small intestine, colon, stomach, uterus, and ovaries and the risk for postoperative abscess as well as the risk for other operative procedures should any potential injuries to nearby structures occur. She understood these risks, benefits, and alternatives and she wished to proceed with surgery. She has been given Zosyn. She has been n.p.o. since yesterday evening and we will take her to the operating room for laparoscopic appendectomy. [id number]/[facility] #: [id number] CHIDI
== END 2019-05-08 15:58 | disposition home or self-care (01) ==
LOC: ED 08:33 → SDS 15:29
PROVIDERS: ATTEND Surgery
DX: K35.80 Unspecified acute appendicitis (principal); R10.31 Right lower quadrant pain; R11.0 Nausea; F41.8 Other specified anxiety disorders; Z87.891 Personal history of nicotine dependence
CPT/HCPCS: 36415; 74176; 80053; 83690; 84702; 85025; 86140; 88304; 99283; J2270; J2405; J2543

== ENCOUNTER 2019-10-10 08:17 | Emergency (ER) | payer BC ==
[2019-10-10 08:25] VITALS: BP 118/78
--- NOTE | 2019-10-10 08:55 | UC ---
- HPI Summary HPI Summary: 28yo mom, a 16 mo, with clogged duct yesterday and a small blister on the left nipple. She used a neele to deroof this, and then pumped about 8 ounces of mild from the breast. Today, she feels unwell with myalgias and chills, increasing pain in the breast, and soreness in the left axilla. She has taken 800mg of ibuprofen within the hour. - History of Current Complaint Hx Obtained From: Patient Breast Chief Complaint: Pain, Left, Color Changes Onset/Duration: Started Hours Ago Timing: Constant Breast Pain Radiates To: Left, Axilla Breast Pain Aggravating Factors: Breast Feeding, Palpation, Pressure Breast Pain Alleviating Factors: Heat Breast Associated Signs/Symptoms: Redness, Recent/Remote Trauma - Allergy/Home Medications Allergies/Adverse Reactions: Allergies Allergy/AdvReac Type Severity Reaction Status Date / Time shellfish derived Allergy Severe Anaphylatic Verified 10/10/19 08:25 Shock cefaclor [From Ceclor] Allergy Intermediate Hives Verified 10/10/19 08:25 Iodine and Iodide Containing Allergy Intermediate Anaphylatic Verified 10/10/19 08:25 Produc Shock PMH/Surg Hx/FS Hx/Imm Hx Previously Healthy: Yes - Surgical History Surgical History: Yes Surgery Procedure, Year, and Place: c-sec x1,appy 05/09/19 - Family History Known Family History: Positive: Non-Contributory - Social History Lives: With Family Alcohol Use: Occasionally Alcohol Amount: pre = 1 to 2/ week Substance Use Type: None Smoking Status (MU): Former Smoker Type: Cigarettes Length of Time of Smoking/Using Tobacco: 3yrs Have You Smoked in the Last Year: No Review of Systems All Other Systems Reviewed And Are Negative: Yes Constitutional: Positive: Fatigue Skin: Positive: Other - left breast erythema Eyes: Positive: Negative ENT: Positive: Negative Respiratory: Positive: Negative Cardiovascular: Positive: Negative Gastrointestinal: Positive: Negative Genitourinary: Positive: Negative Motor: Positive: Negative Neurovascular: Positive: Negative Musculoskeletal: Positive: Negative Neurological: Positive: Negative Psychological: Positive: Negative Is Patient Immunocompromised?: No Physical Exam Triage Information Reviewed: Yes Appearance: Ill-Appearing - looks pale and fatigued, Pain Distress - moderate Vital Signs: Initial Vital Signs Temp 97.8 F 12/22/19 08:22 Pulse 100 10/10/19 08:22 Resp 20 10/10/19 08:22 BP 118/78 10/10/19 08:22 Pulse Ox 100 10/10/19 08:22 Eye Exam: Normal ENT: Positive: Pharynx normal Neck: Positive: Supple, Nontender, No Lymphadenopathy Respiratory: Positive: Lungs clear, Normal breath sounds Musculoskeletal Exam: Normal Neurological Exam: Normal Psychological Exam: Normal Skin Exam: Other - Left breast with erythema in the upper outer quadrant, with small inflammatory papule at the duct opening on the areola. Induration of the breast lobe with marked tenderness to palpation. Breast Pain Course/Dx - Course Course Of Treatment: Use of clindamycin for treatment of mastitis, with continued use of ibuprofen for control of pain. Discussed risk of diarrnea in her toddler. Continue measures at breast drainage. - Differential Diagnoses Differential Diagnosis/HQI/PQRI: Breast Abscess, Mastitis - Diagnoses Provider Diagnoses: Acute mastitis of left breast Discharge ED - Sign-Out/Discharge Documenting (check all that apply): Patient Departure All imaging exams completed and their final reports reviewed: No Studies - Discharge Plan Condition: Stable Disposition: HOME Prescriptions: Clindamycin HCl 150 mg PO TID #15 capsule Patient Education Materials: Mastitis (ED) Referrals: Saud Polanco MD [Primary Care Provider] - Additional Instructions: Continue use ibuprofen for control of pain, andu continue efforts to drain the left breast with manual expression and use of your breast pump. Take clindamycin three times daily, monitoring your son for diarrhea. Follow up if you have continued pain or redness. - Billing Disposition and Condition Condition: STABLE Disposition: Home
== END 2019-10-10 09:21 | disposition home or self-care (01) ==
LOC: UCEAST 08:17
DX: N61.0 Mastitis without abscess (principal); Z91.013 Allergy to seafood; Z88.1 Allergy status to other antibiotic agents; Z91.09 Other allergy status, other than to drugs and biological substances; Z87.891 Personal history of nicotine dependence
CPT/HCPCS: 99212; G0463

== ENCOUNTER 2019-10-19 23:01 | Emergency (ER) | payer BC ==
[2019-10-19] MEDS ORDERED: Ondansetron ODT TAB* 4 MG SL PRN (23:29)
[2019-10-19] MEDS ORDERED: Ondansetron ODT TAB* 4 MG PO ONE (23:39)
--- NOTE | 2019-10-19 23:43 | ED ---
Abdominal Pain/Female - HPI Summary HPI Summary: Pt is a 28 y/o F presenting to the ED with a chief complaint of RUQ abd pain initially onset on 10/17/19. It has been intermittent since April after she had her appendix removed, and is worse after eating. She also notes some dysuria today. Hx appendectomy, as well as in Jun 2018. She denies fever, vomiting, or diarrhea. - History of Current Complaint Chief Complaint: EDAbdPain Stated Complaint: ABD/BACK PAIN PER PT Time Seen by Provider: 10/19/19 23:29 Hx Obtained From: Patient Hx Last Menstrual Period: 09/24/19 Onset/Duration: Gradual Onset, Lasting Days, Still Present Timing: Hours Severity Initially: Moderate Severity Currently: Severe Pain Intensity: 8 Pain Scale Used: 0-10 Numeric Location: Discrete At: RUQ Radiates: No Aggravating Factor(s): Food Alleviating Factor(s): Nothing Associated Signs and Symptoms: Positive: Urinary Symptoms. Negative: Fever, Vomiting, Diarrhea Allergies/Adverse Reactions: Allergies Allergy/AdvReac Type Severity Reaction Status Date / Time shellfish derived Allergy Severe Anaphylatic Verified 10/19/19 23:06 Shock cefaclor [From Ceclor] Allergy Intermediate Hives Verified 10/19/19 23:06 Iodine and Iodide Containing Allergy Intermediate Anaphylatic Verified 10/19/19 23:06 Produc Shock PMH/Surg Hx/FS Hx/Imm Hx Previously Healthy: Yes Endocrine/Hematology History: Denies: Hx Diabetes Cardiovascular History: Denies: Hx Hypertension Psychiatric History: Reports: Hx Anxiety, Hx Depression - Surgical History Surgery Procedure, Year, and Place: c-sec x1,appy 05/09/19 Infectious Disease History: No Infectious Disease History: Denies: Traveled Outside the [place] in Last 30 Days - Family History Known Family History: Negative: Diabetes - Social History Alcohol Use: Occasionally Alcohol Amount: pre = 1 to 2/ week Hx Substance Use: No Substance Use Type: Reports: None Hx Tobacco Use: Yes Smoking Status (MU): Former Smoker Type: Cigarettes Length of Time of Smoking/Using Tobacco: 3yrs Have You Smoked in the Last Year: No Review of Systems - ROS Summary Review of Systems Summary: Home Medications Medication Instructions Recorded Confirmed Type Vitamin TAB* 1 tab PO DAILY 04/16/18 10/10/19 History Clindamycin HCl 150 mg PO TID #15 capsule 12/22/19 Rx Negative: Fever Positive: Abdominal Pain. Negative: Vomiting, Diarrhea All Other Systems Reviewed And Are Negative: Yes Physical Exam - Summary Physical Exam Summary: General: Well-developed, Well-nourished female. Mildly anxious appearing. HEENT: Normocephalic, Atraumatic. Eyes: Conjuctiva normal, PERRL. Oropharynx: Clear, mucous membranes moist, (-) exudates. Neck: Soft, FROM, (-) lymphadenopathy, (-) thyromegaly, (-) JVD. Cardiovascular: Normal sinus rhythm, (-) murmur. Lungs: Clear to auscultation bilaterally (-) wheezes, (-) rales, (-) rhonchi. Abdomen: Soft, mild RUQ tenderness to palpation, positive [place] sign, non- distended, (-) organomegaly, normal bowel sounds. Back: (-) CVA tenderness Extremities: No edema. Skin: Warm, dry, (-) rash. Neuro: Alert and oriented x3, no focal deficits. Psychiatric: Mood normal, affect normal. Triage Information Reviewed: Yes Vital Signs On Initial Exam: Initial Vitals Temp Pulse Resp BP Pulse Ox 98.1 F 106 18 174/109 100 10/19/19 23:02 10/19/19 23:02 10/19/19 23:02 10/19/19 23:02 10/19/19 23:02 Vital Signs Reviewed: Yes Procedures - Sedation Patient Received Moderate/Deep Sedation with Procedure: No Diagnostics - Vital Signs Vital Signs Temp Pulse Resp BP Pulse Ox 10/19/19 23:02 98.1 F 106 18 174/109 100 - Laboratory Result Diagrams: 10/19/19 23:44 10/19/19 23:44 Lab Statement: Any lab studies that have been ordered have been reviewed, and results considered in the medical decision making process. - Ultrasound Abd US Ultrasound Interpretation Completed By: Radiologist Summary of Ultrasound Findings: Normal study. ED physician has reviewed this report. Re-Evaluation - Re-Evaluation 1st re-eval Re-Evaluation Time: 01:25 Change: Improved Comment: I have discussed results with the patient and abd pain is resolved. Discussed symptoms that warrant immediate return to ED. Abdominal Pain Fem Course/Dx - Course Course Of Treatment: 28-year-old female presents with right upper quadrant abdominal pain. Nausea. No fevers or vomiting. No diarrhea. Patient recently had her appendix out. States she's been having problems off-and-on since then. Significant discomfort tonight. Patient has mild right upper quadrant tenderness on palpation. Negative Mcintosh's. Ultrasounds within normal limits. Patient discharged home. Given Zofran. Follow up PCP. Follow up sooner for any worsening symptoms. In the ED course, the pt was given 4mg Zofran. - Diagnoses Provider Diagnoses: Abdominal pain Discharge ED - Sign-Out/Discharge Documenting (check all that apply): Patient Departure - Discharge Plan Condition: Stable Disposition: HOME Patient Education Materials: Abdominal Pain (ED) Referrals: Saud Polanco MD [Primary Care Provider] - Additional Instructions: Please follow up with your primary care physician within three days. Please return to ED for any new or worsening symptoms. - Billing Disposition and Condition Condition: STABLE Disposition: Home - Attestation Statements Document Initiated by Scribe: Yes Documenting Scribe: Paulette Calvo Provider For Whom Ranjan is Documenting (Include Credential): Barbara Saleem MD. Scribe Attestation: Paulette Solano, scribed for Barbara Saleem MD. on 10/20/19 at 0555. Scribe Documentation Reviewed: Yes Provider Attestation: The documentation as recorded by the Paulette araujo accurately reflects the service I personally performed and the decisions made by , Barbara Saleem MD. Status of Scribe Document: Viewed
[2019-10-19 23:52] LABS: ABS Basophils 0.1 10^3/ul (0-0.2); ABS Eosinophils 0.2 10^3/ul (0-0.6); ABS Lymphocytes 2.1 10^3/ul (1.0-4.8); ABS Monocytes 0.7 10^3/ul (0-0.8); ABS Neutrophils 2.8 10^3/ul (1.5-7.7); Eosinophil % 2.7 %; Hematocrit 40 % (35-47); Hemoglobin 14.2 g/dL (12.0-16.0); Mean Corpuscular HGB Conc 35 g/dL (31-36); Mean Corpuscular Hemoglobin 32 pg (27-31); Mean Corpuscular Volume 91 fL (80-97); Mean Platelet Volume 9.4 fL (7.4-10.4); Nucleated Red Blood Cells % 0.1; Platelet Count 199 10^3/uL (150-450); Red Blood Count 4.42 10^6 /uL (3.70-4.87); Red Cell Distribution Width 13 % (10-15); White Blood Count 5.9 10^3/uL (3.5-10.8)
[2019-10-20 00:08] LABS: INR 1.11 (0.82-1.09)
[2019-10-20 00:09] LABS: ALT 9 U/L (7-52); AST 11 U/L (13-39); Albumin 4.3 g/dL (3.2-5.2); Albumin/Globulin Ratio 1.7 (1-3); Alkaline Phosphatase 81 U/L (34-104); Amylase 35 U/L (29-103); Anion Gap 7 mmol/L (2-11); Blood Urea Nitrogen 20 mg/dL (6-24); C Reactive Protein 1.35 mg/L (<8.01); CO2 Carbon Dioxide 26 mmol/L (22-32); Calcium 9.1 mg/dL (8.6-10.3); Chloride 106 mmol/L (101-111); EGFR African American 103.3 (>60); EGFR Non-African American 85.4 (>60); Globulin 2.6 g/dL (2-4); Glucose 107 mg/dL (70-100); Potassium 3.7 mmol/L (3.5-5.0); Sodium 139 mmol/L (135-145); Total Protein 6.9 g/dL (6.4-8.9)
[2019-10-20 00:15] LABS: HCG Pregnancy < 0.60 mIU/mL
[2019-10-20] MEDS ORDERED: O ndansetron ODT 4MG 5TAB PRPK 4 MG PAK PO ONE (01:24)
[2019-10-20 01:41] VITALS: BP 111/68
== END 2019-10-20 01:30 | disposition home or self-care (01) ==
LOC: ED 23:01
DX: R10.9 Unspecified abdominal pain (principal); F41.9 Anxiety disorder, unspecified; F32.9 Major depressive disorder, single episode, unspecified; Z87.891 Personal history of nicotine dependence; Z88.1 Allergy status to other antibiotic agents; Z91.041 Radiographic dye allergy status; Z90.89 Acquired absence of other organs
CPT/HCPCS: 36415; 76705; 80053; 82150; 83605; 83690; 84702; 85025; 85610; 86140; 99282; A9270-GY

== ENCOUNTER 2020-08-08 06:28 | Inpatient (IN) ==
[2020-08-08] MEDS ORDERED: Promethazine INJ(RESTRICTED) 25 MG/ML 1 ml VIAL IM ONE (08:28)
[2020-08-08] MEDS ORDERED: Lactated Ringers 1000 ml BAG 1,000 ML IV ONE ×2 (11:05→17:00)
[2020-08-08] MEDS ORDERED: Buffered Lidocaine 1% SYRIN 1 ml INTRADERM ONE (11:05)
[2020-08-08] MEDS ORDERED: Lactated Ringers 1000 ml BAG 1,000 ML IV SCH ×3 (12:00→23:45)
[2020-08-08 12:08] LABS: ABS Lymphocytes 1.5 10^3/ul (1.0-4.8); ABS Monocytes 0.7 10^3/ul (0-0.8); ABS Neutrophils 8.7 10^3/ul (1.5-7.7); Eosinophil % 0.3 %; Hematocrit 43 % (35-47); Lymphocyte % 13.9 %; Mean Corpuscular HGB Conc 35 g/dL (31-36); Mean Corpuscular Hemoglobin 33 pg (27-31); Mean Corpuscular Volume 94 fL (80-97); Mean Platelet Volume 10.9 fL (7.4-10.4); Platelet Count 144 10^3/uL (150-450); Red Blood Count 4.59 10^6 /uL (3.70-4.87); Red Cell Distribution Width 13 % (10-15)
[2020-08-08 12:31] LABS: Urine Benzodiazepine Screen None Detected (None Detect); Urine Cannabinoids Screen None Detected (None Detect); Urine Opiates Screen None Detected (None Detect)
[2020-08-08] MEDS ORDERED: OBEPIDURAL 250 ML EPIDURAL ONE (15:23)
[2020-08-08] MEDS ORDERED: Lidocaine 2% w/ EPI 1:200,000 MPF 20 ML SDV VIAL ONE (16:17)
[2020-08-08] MEDS ORDERED: fentaNYL 100 mcg/2 ml 50 MCG/ML VIAL ONE (16:38)
[2020-08-08] MEDS ORDERED: Phenylephrine 40 mcg/mL 10mL (400mcg) SYRINGE IV PUSH PRN (17:00)
[2020-08-08] MEDS ORDERED: OBEPIDURAL 250 ML EPIDURAL SCH (17:00)
[2020-08-08] MEDS ORDERED: Sodium Citrate/Citric Acid LIQ 15 ML UDC PO PRN (17:00)
[2020-08-08] MEDS ORDERED: EPHEDrine (Pressors) 50 MG/ML VIAL IV PUSH PRN (17:00)
[2020-08-08] MEDS ORDERED: Oxytocin in LR 0 UNITS/0 ML BAG IVPB ONE (23:07)
[2020-08-09] MEDS: Dibucaine 1% OINT 28.35 GM TUBE PR PRN ×2 (00:27→21:12)
[2020-08-09] MEDS: Witch Hazel PAD JAR TOPICAL PRN ×2 (00:27→21:12)
[2020-08-09 09:18] LABS: ABS Basophils 0.1 10^3/ul (0-0.2); ABS Lymphocytes 1.7 10^3/ul (1.0-4.8); ABS Monocytes 1.5 10^3/ul (0-0.8); ABS Neutrophils 13.3 10^3/ul (1.5-7.7); Eosinophil % 0.2 %; Hematocrit 37 % (35-47); Hemoglobin 12.6 g/dL (12.0-16.0); Lymphocyte % 10.3 %; Mean Corpuscular HGB Conc 34 g/dL (31-36); Mean Corpuscular Hemoglobin 32 pg (27-31); Mean Corpuscular Volume 96 fL (80-97); Mean Platelet Volume 10.7 fL (7.4-10.4); Platelet Count 136 10^3/uL (150-450); Red Blood Count 3.89 10^6 /uL (3.70-4.87); Red Cell Distribution Width 13 % (10-15); White Blood Count 16.6 10^3/uL (3.5-10.8)
[2020-08-10 09:07] VITALS: BP 120/80
== END 2020-08-10 10:25 | disposition home or self-care (01) | DRG 560 ==
LOC: MCHOBOUT 06:28 → MCHOB 11:00
PROVIDERS: ADMIT Obstetrics & Gynecology; ATTEND Obstetrics & Gynecology